=== PATIENT | male | born 2000 | race Caucasian/White ===

== ENCOUNTER 2024-01-28 18:57 | Emergency (ER) | payer BC ==
[~2024-01-28] VITALS: Ht 190.5 cm; Wt 86.2 kg
[2024-01-28] MEDS ORDERED: Ondansetron HCl 2 MG / ML 2ML Vial IV PRN (19:15)
[2024-01-28 19:39] LABS: BASOPHILS ABSOLUTE AUTO 0.02 K/mm3 (0.00-0.23); BASOPHILS PERCENT AUTO 0 % (0-2); EOSINOPHILS ABSOLUTE AUTO 0.02 K/mm3 (0.00-0.68); EOSINOPHILS PERCENT AUTO 0 % (0-6); Hematocrit 45.5 % (37.0-53.0); Hemoglobin 16.1 g/dL (13.5-17.5); IMMATURE GRAN ABSOLUTE AUTO 0.04 K/mm3 (0.00-0.10); IMMATURE GRAN PERCENT AUTO 0 % (0-1); LYMPHOCYTES ABSOLUTE AUTO 0.47 K/mm3 (0.84-5.20); LYMPHOCYTES PERCENT AUTO 3 % (21-46); MONOCYTES ABSOLUTE AUTO 0.46 K/mm3 (0.16-1.47); MONOCYTES PERCENT AUTO 3 % (4-13); Mean Corpuscular HGB 29.5 pg (26.0-34.0); Mean Corpuscular HGB Conc 35.4 g/dL (31.5-36.5); Mean Corpuscular Volume 83 fL (80-100); Mean Platelet Volume 8.1 fL (9.1-12.4); NEUTROPHILS ABSOLUTE AUTO 13.78 K/mm3 (1.96-9.15); NEUTROPHILS PERCENT AUTO 93 % (41-73); Platelet Count 259 K/mm3 (150-400); RDW Coefficient Variation 11.9 % (11.7-14.2); Red Blood Cell Count 5.46 M/mm3 (4.30-5.90); White Blood Cell Count 14.79 K/mm3 (4.00-11.30)
[2024-01-28 19:57] LABS: Albumin, Blood 4.7 g/dL (3.4-5.0); Albumin/Globulin Ratio 1.3 (0.8-1.8); Bilirubin, Total 1.2 mg/dL (0.1-1.0); Bun/Creatinine Ratio 14.4 (12.0-20.0); Calcium, Blood 9.9 mg/dL (8.5-10.1); Creatinine, Blood 0.9 mg/dL (0.60-1.20); Globulin, Blood 3.7 g/dL (2.2-4.0); Potassium, Blood 3.7 mmol/L (3.5-5.5); Total Protein, Blood 8.4 g/dL (6.4-8.2)
[2024-01-28] MEDS ORDERED: FentaNYL Citrate 50 MCG/ML 2 ML Injection IV ONE (21:35)
[2024-01-28] MEDS ORDERED: NS 1,000 ML IV SCH (21:35)
[2024-01-28] MEDS ORDERED: Prochlorperazine Edisylate 10 mg Vial IV ONE (21:35)
[2024-01-28] MEDS ORDERED: DICY20 PO (22:47)
[2024-01-28] MEDS ORDERED: ONDA4ODT MM (22:47)
[2024-01-28] MEDS ORDERED: RX Prepack 2 Tabs Ondansetron ODT 4MG UD ONE (22:50)
== END 2024-01-28 23:06 | disposition home or self-care (01) ==
LOC: ER 18:57
PROVIDERS: Emergency Medicine
DX: K52.9 Noninfective gastroenteritis and colitis, unspecified (principal)
CPT/HCPCS: 74177; 80053; 83690; 85025; 96374; 96375; 99284-25; A9270; J0780; J3010; J7030; Q9967